=== PATIENT | female | born 1985 | race African-American/Black ===

== ENCOUNTER 2017-10-07 17:18 | Emergency (ER) | payer OTHER ==
[~2017-10-07] VITALS: Ht 162.6 cm; Wt 52.2 kg
[2017-10-07 17:18] VITALS: BP 102/58
== END 2017-10-07 17:50 | disposition home or self-care (01) ==
LOC: ER 17:22
DX: S13.4XXA Sprain of ligaments of cervical spine, initial encounter (principal); V43.52XA Car driver injured in collision with other type car in traffic accident, initial encounter; Y93.89 Activity, other specified; Y92.413 State road as the place of occurrence of the external cause; Y99.8 Other external cause status
CPT/HCPCS: 99283; A4606; Z7610